=== PATIENT | female | born 1955 | race African-American/Black ===

== ENCOUNTER 2018-06-26 06:29 | Emergency (ER) | END 2018-06-26 07:17 | disposition home or self-care (01) ==

== ENCOUNTER 2019-05-06 07:50 | Emergency (ER) | payer MEDICARE, OTHER ==
[~2019-05-06] VITALS: Ht 162.6 cm; Wt 82.7 kg
[~2019-05-06 07:50] MED LIST: ADV10050 INHALATION; ALBU18HF INHALATION; AMLO5TAB4 PO; FLUT9.9S NASAL; LISI10TA2 PO; MED4DP PO; PSEU30TA38 PO; TIOT18CA INHALATION
[2019-05-06 07:59] VITALS: Ht 162.6 cm; Wt 82.7 kg
[2019-05-06] MEDS ORDERED: ASPIRIN 81 MG TAB PO STA (08:23)
[2019-05-06] MEDS ORDERED: NITROGLYCERIN (SL) 0.4 MG TAB SL PRN (08:30)
--- NOTE | 2019-05-06 08:33 | ERD ---
ER Documentation Chief Complaint Chief Complaint BIB RA FOR EVAL CP THIS AM. WOKE PT UP FROM SLEEP. 1 SPRAY NTG 162MG ASA HPI 63-year-old female history of COPD and hypertension noncompliant with her blood pressure medication. Presenting with chest pain. Patient woke up this morning with chest pressure. Denies a history of similar symptoms. Denies any exertional symptoms. No nausea or vomiting. No recent infectious symptoms. No recent traveling. Patient denies any cough. States she has not had chest pressure like this before, which she does get COPD exacerbations it feels differently than this. Patient was given 162 mg aspirin and nitro in the field via EMS. Nitro did alleviate some of the patient's chest pain ROS All systems reviewed and are negative except as per history of present illness. Medications Home Meds Reported Medications Albuterol Sulfate* (Ventolin HFA*) 18 Gm Hfa.aer.ad, 2 PUFF INHALATION Q6H, #1 INHALER 05/06/19 Tiotropium [place]* (Spiriva*) 18 Mcg Cap.w.dev, 1 CAP INHALATION DAILY, #30 CAP 05/06/19 Salmeterol Xinaf-Fluticasone* (Advair*) 100/50 Diskus Inhaler, 1 INH INHALATION BID, #1 INHALER 05/06/19 Lisinopril* (Lisinopril*) 10 Mg Tablet, 10 MG PO DAILY, #30 TAB 05/06/19 Amlodipine Besylate* (Norvasc*) 5 Mg Tablet, 5 MG PO DAILY, TAB 05/06/19 Discontinued Scripts Methylprednisolone* (Medrol* DOSE PACK) 4 Mg/Dose-Pack Tab.ds.pk, 4 MG PO . DIRECTED, #1 PACKET Prov:YVROSE KENNEY PA-C 06/26/18 Fluticasone Propionate (Flonase Allergy Relief) 9.9 Ml [place].susp, 1 SPRAY NASAL BID, #1 BOTTLE TO EACH NOSTRIL Prov:YVROSE KENNEY PA-C 06/26/18 Pseudoephedrine Hcl* (Pseudoephedrine Hcl*) 30 Mg Tablet, 30 MG PO Q6 PRN for CONGESTION, #30 TAB Prov:YVROSE KENNEY PA-C 06/26/18 Allergies Allergies: Coded Allergies: No Known Allergy (Unverified , 05/06/19) PMhx/Soc History of Surgery: Yes (Appendectomy) Anesthesia Reaction: No Hx Respiratory Disorders: Yes (COPD, chronic bronchitis) Hx Miscellaneous Medical Probl: Yes (HTN) Hx Alcohol Use: Yes (occasional) Hx Substance Use: No Smoking Status: Never smoker Physical Exam Vitals Vital Signs Date Temp Pulse Resp B/P (MAP) Pulse Ox O2 O2 Flow FiO2 Time Delivery Rate 05/06/19 98.0 74 18 132/78 97 Room Air 13:21 (96) 05/06/19 97.9 68 18 136/74 97 Room Air 11:00 (94) 05/06/19 98.7 91 18 131/82 97 07:59 (98) Physical Exam Const: No acute distress Head: Atraumatic Eyes: Normal Conjunctiva ENT: Normal External Ears, Nose and Mouth. Neck: Full range of motion. No meningismus. Resp: Clear to auscultation bilaterally Cardio: Regular rate and rhythm, no murmurs Abd: Soft, non tender, non distended. Normal bowel sounds Skin: No petechiae or rashes Back: No midline or flank tenderness Ext: No cyanosis, or edema Neur: Awake and alert Psych: Normal Mood and Affect Result Diagram: 05/06/19 0839 05/06/19 0839 Results 24 hrs Laboratory Tests Test 05/06/19 08:39 05/06/19 13:32 White Blood Count 4.2 10^3/ul Red Blood Count 4.49 10^6/ul Hemoglobin 12.7 g/dl Hematocrit 40.7 % Mean Corpuscular Volume 90.6 fl Mean Corpuscular Hemoglobin 28.3 pg Mean Corpuscular Hemoglobin Concent 31.2 g/dl Red Cell Distribution Width 13.4 % Platelet Count 202 10^3/UL Mean Platelet Volume 9.1 fl Immature Granulocytes % 0.200 % Neutrophils % 40.0 % Lymphocytes % 40.6 % Monocytes % 13.4 % Eosinophils % 5.3 % Basophils % 0.5 % Nucleated Red Blood Cells % 0.0 /100WBC Immature Granulocytes # 0.010 10^3/ul Neutrophils # 1.7 10^3/ul Lymphocytes # 1.7 10^3/ul Monocytes # 0.6 10^3/ul Eosinophils # 0.2 10^3/ul Basophils # 0.0 10^3/ul Nucleated Red Blood Cells # 0.0 10^3/ul Sodium Level 144 mmol/L Potassium Level 4.0 mmol/L Chloride Level 110 mmol/L Carbon Dioxide Level 26 mmol/L Anion Gap 8 Blood Urea Nitrogen 18 mg/dl Creatinine 0.74 mg/dl Est Glomerular Filtrat Rate mL/min > 60 mL/min Glucose Level 92 mg/dl Calcium Level 9.6 mg/dl Troponin I < 0.012 ng/ml < 0.012 ng/ml Current Medications Medications Dose Sig/Brigida Start Time Status Last (Trade) Ordered Route PRN Stop Time Admin Dose Reason Admin Aspirin 162 mg ONCE STAT 05/06/19 DC 05/06/19 (Aspirin) PO 08:23 08:30 05/06/19 08:24 1 tab Q5M UP TO 3 05/06/19 05/06/19 Nitroglycerin DOSES PRN 08:30 08:30 SL .CHEST (Nitroglyceri PAIN n (Sl Tab) 0.4 Mg) Procedures/MDM The patient presents with chest pain and I considered pulmonary embolism, aortic dissection, pneumothorax among other diagnoses. Evaluation for acute coronary syndrome was performed. The HEART score was utilized for risk stratification and found to be < 3. Repeat EKG and troponin @ 3 hours were unchanged. Based on this evaluation the patients risk of major adverse cardiac events is <1%. Shared decision making occurred with patient and the decision has been made to discharge the patient for outpatient evaluation and functional study within 72 hours. Chest X-ray 1V Interpreted by me: Soft Tissue: No acute abnormalities Bones: No acute abnormalities Mediastinum/Cardiac Silhouette/Lungs: No acute abnormalities Impression: Normal Chest X-Ray ECG Time: 759 Ventricular Rate: 89 Rhythm: normal sinus rhythm. ST Segments: without evidence of depressions or elevations T wave inversions V5 V6 Intervals: without evidence of AV block, new BBB, long QT, [place] No evidence of delta wave. Delta EKG and delta troponin both reassuring. No change in EKG between 8 AM and 12 PM. And to tropes negative. Chest pain resolved. Will discharge with strict follow-up as an outpatient Departure Condition: Stable Patient Instructions: Chest Pain, Uncertain Cause MALGORZATA ROBERTO MD May 06, 2019 08:33
[2019-05-06 15:03] VITALS: BP 124/68; PULSE 62; RESP 17
== END 2019-05-06 15:15 | disposition home or self-care (01) ==
LOC: E/R 07:50
DX: I10 Essential (primary) hypertension (principal); J44.9 Chronic obstructive pulmonary disease, unspecified
CPT/HCPCS: 36415; 71045; 80048; 84484; 85025; 93005